=== PATIENT | female | born 1980 | race Caucasian/White ===

== ENCOUNTER 2016-12-25 21:55 | Emergency (ER) | payer OTHER ==
[2016-12-26 00:18] VITALS: BP 129/86
== END 2016-12-26 00:18 | disposition home or self-care (01) ==
LOC: ED 21:55
DX: K04.7 Periapical abscess without sinus (principal)
CPT/HCPCS: J1885

== ENCOUNTER 2017-03-30 13:06 | Emergency (ER) | payer OTHER ==
[~2017-03-30] VITALS: Ht 165.1 cm; Wt 77.9 kg
[2017-03-30 15:13] VITALS: BP 118/82
== END 2017-03-30 15:13 | disposition home or self-care (01) ==
LOC: ED 13:06
DX: K04.7 Periapical abscess without sinus (principal)
CPT/HCPCS: J1885

== ENCOUNTER 2017-04-06 19:47 | Emergency (ER) | payer OTHER ==
[2017-04-06 21:29] LABS: PLATELET COUNT 256 x10^3mcL (130-400)
[2017-04-06 21:35] LABS: RED CELL DISTRIBUTION WIDTH 19.4 % (11.5-14.5)
[2017-04-06 21:38] LABS: CALCIUM 8.5 mg/dL (8.5-10.1); CARBON DIOXIDE 25.6 mmol/L (21-32); CHLORIDE SERUM 112 mmol/L (98-107); CREATININE SERUM 0.8 mg/dL (0.6-1.0); GFR1 > 60 mL/min; GLUCOSE SERUM 96 mg/dL (74-106); POTASSIUM SERUM 3.4 mmol/L (3.5-5.1); SODIUM SERUM 148 mmol/L (136-145)
[2017-04-06 21:43] LABS: ALBUMIN 3.7 g/dL (3.4-5.0); ALKALINE PHOSPHATASE 101 U/L (46-116); ALT/SGPT 44 U/L (14-59); AST/SGOT 35 U/L (15-37); BILIRUBIN TOTAL 0.23 mg/dL (0.20-1.00); TOTAL PROTEIN, SERUM 7.5 g/dL (6.4-8.2)
[2017-04-06 21:59] LABS: MONOCYTE 4 % (0-7); SEGMENTED NEUTROPHILS 73 % (37-75)
[2017-04-06 22:00] LABS: BAND NEUTROPHIL 0 % (0-10); BASOPHIL 0 % (0-2); PLATELET MORPHOLOGY PLATELETS NORMAL; rbc morphology (normal/abnorm) ABNORMAL (NORMAL)
[2017-04-06 22:01] LABS: ovalocyte/elliptocyte 1+
[2017-04-06 22:48] VITALS: BP 125/88
== END 2017-04-06 22:48 | disposition home or self-care (01) ==
LOC: ED 19:47
PROVIDERS: Emergency Medicine Emergency Medical Services
DX: I89.0 Lymphedema, not elsewhere classified (principal); E87.6 Hypokalemia; D50.9 Iron deficiency anemia, unspecified; Z79.2 Long term (current) use of antibiotics

== ENCOUNTER 2017-08-11 23:29 | Inpatient (IN) | payer OTHER ==
[~2017-08-11] VITALS: Ht 165.1 cm; Wt 80.8 kg
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
[2017-08-12] VITALS (12 sets, daily range): BP systolic 83–99; BP diastolic 46–58
--- NOTE | 2017-08-12 00:15 | NUR ---
MSE COMPLETED BY DR ZARAGOZA.
[2017-08-12 00:35] LABS: BASOPHIL % 0.3 % (0-2); PLATELET COUNT 245 x10^3mcL (130-400)
[2017-08-12 00:41] LABS: CALCIUM 7.7 mg/dL (8.5-10.1); CARBON DIOXIDE 22.6 mmol/L (21-32); CHLORIDE SERUM 109 mmol/L (98-107); CREATININE SERUM 0.6 mg/dL (0.6-1.0); GFR1 > 60 mL/min; GLUCOSE SERUM 121 mg/dL (74-106); POTASSIUM SERUM 3.9 mmol/L (3.5-5.1); SODIUM SERUM 138 mmol/L (136-145)
[2017-08-12 00:46] LABS: ALKALINE PHOSPHATASE 67 U/L (46-116); ALT/SGPT 19 U/L (14-59); AST/SGOT 26 U/L (15-37); BILIRUBIN TOTAL 0.2 mg/dL (0.20-1.00); RED CELL DISTRIBUTION WIDTH 21.5 % (11.5-14.5)
[2017-08-12 00:48] LABS: ALBUMIN 2.4 g/dL (3.4-5.0); TOTAL PROTEIN, SERUM 5.6 g/dL (6.4-8.2)
--- NOTE | 2017-08-12 00:50 | NUR ---
CHAPPERONED DR ZARAGOZA WITH PELVIC EXAM. PT HAS MANY LARGE CLOTS. PT STS NO PAIN AT THIS TIME. PT CLEANED AND GIVEN WATER, OKAY BY .
--- NOTE | 2017-08-12 01:35 | NUR ---
EMERGENCY O NEG BLOOD ORDERED BY DR ZARAGOZA; TRANSFUSION INITIATED AT 0130 BY CLINICAL EVALUATOR JANINE AND MYSELF. PT WITH EVEN CHEST RISE AND FALL, STS NO PAIN AT THIS TIME.
--- NOTE | 2017-08-12 01:54 | NUR ---
REPORT GIVEN TO TABITHA/JOHN TO ASSUME CARE OF PT
--- NOTE | 2017-08-12 02:18 | NUR ---
US AT BEDSIDE
[2017-08-12 02:21] LABS: rbc morphology (normal/abnorm) ABNORMAL (NORMAL)
[2017-08-12 02:22] LABS: ovalocyte/elliptocyte 1+; tear drop cell (dacryocyte) 1+
--- NOTE | 2017-08-12 03:01 | NUR ---
PT TRANSFERED TO TELE UNIT
[2017-08-12 03:02] LABS: MAGNESIUM 1.7 mg/dL (1.8-2.4); PHOSPHOROUS 3.7 mg/dL (2.5-4.9)
[2017-08-12 03:06] LABS: CHOLESTEROL/HDL RATIO 1.8
[2017-08-12 03:09] LABS: T3 TOTAL 1.18 ng/mL
[2017-08-12 03:12] LABS: FREE T4 0.92 ng/dL (0.76-1.46); FREE THYROXINE INDEX 2.3 ug/dL (1.4-4.5); T4(THYROXINE) 6.7 ug/dL (4.7-13.3)
--- NOTE | 2017-08-12 03:15 | NUR ---
PT ARRIVED TO FLOOR AT 0255 VIA GURNEY ACCOMPANIED BY AN ED RN IN STABLE CONDITION. BP 99/46 (64), O2 97, T 97.0 HR 16 HR 99. PT DENIES ANY PAIN, SOB, ESCALONA, DIZZINESS AT THIS TIME. PT ARRIVED WITH BED JAVED IN PLACE AND WAS ACTIVELY BLEEDING FROM VAGINA. PT ORIENTED TO ROOM. CALL LIGHT WITHIN REACH. ALL SAFETY MEASURES ENSURED. WILL CONTINUE TO MONITOR.
--- NOTE | 2017-08-12 03:50 | NUR ---
PT CONTINUES TO BE PASSING BLOOD CLOTS FROM VAGINA. LRG BLOOD CLOT NOTED THAT PASSED.
--- NOTE | 2017-08-12 04:59 | NUR ---
IVF NS bolus infusing at this time as ordered. Blood pressure on the low side closely monitored. aware. Pt.resting. In no apparent distress. Seen by RT.
[2017-08-12 06:46] LABS: BASOPHIL % 0.2 % (0-2); PLATELET COUNT 182 x10^3mcL (130-400)
[2017-08-12 07:01] LABS: RED CELL DISTRIBUTION WIDTH 28.3 % (11.5-14.5)
--- NOTE | 2017-08-12 07:11 | NUR ---
PT SEEN BY DR. COOPER FOR D&C. CONSENT SIGNED, CHLORHEXIDINE WIPES DONE. PICKED UP VIA GURNEY ACCOMPANIED BY OR NURSE. OR NURSE AWARE THAT 3 UNITS OF BLOOD ORDERED, UNABLE TO START BLOOD BC WE WERE WAITING FOR BLOOD TO BE AVAILABLE AND OR WAS READY TO TRANSPORT HER FOR PROCEDURE BY THE TIME BLOOD WAS AVAILABLE. COMMUNICATED THAT TO OR NURSE. UNABLE TO GIVE METHERGINE AWAITING FOR PHARMACY TO VERIFY MED. REPORT GIVEN TO OR NURSE.
--- NOTE | 2017-08-12 07:39 | NUR ---
PT OFF UNIT FOR SURGERY.
[2017-08-12 07:51] LABS: RED BLOOD CELLS 3.55 M/mm3 (4.10-5.10)
[2017-08-12 07:55] LABS: CALCIUM 7.4 mg/dL (8.5-10.1); CARBON DIOXIDE 24.1 mmol/L (21-32); CHLORIDE SERUM 112 mmol/L (98-107); CREATININE SERUM 0.6 mg/dL (0.6-1.0); GFR1 > 60 mL/min; GLUCOSE SERUM 109 mg/dL (74-106); POTASSIUM SERUM 4.2 mmol/L (3.5-5.1); SODIUM SERUM 141 mmol/L (136-145)
[2017-08-12 07:59] LABS: IRON 36 ug/dL (50-170)
[2017-08-12 08:01] LABS: TOTAL IRON BINDING CAPACITY 233 ug/dL (250-450)
[2017-08-12 08:27] LABS: rbc morphology (normal/abnorm) ABNORMAL (NORMAL)
[2017-08-12 08:29] LABS: ovalocyte/elliptocyte 1+; tear drop cell (dacryocyte) 1+
--- NOTE | 2017-08-12 08:31 | NUR ---
PT STILL OFF UNIT FOR SURGERY.
--- NOTE | 2017-08-12 09:37 | NUR ---
PT STILL OFF UNIT FOR SURGERY.
--- NOTE | 2017-08-12 10:53 | NUR ---
PT BACK ON UNIT FROM D+C SURGERY, NO RESPIRATORY DISTRESS NOTED, DENIES PAIN, A+OX4, VITAL SIGNS STABLE. REQUESTING TO EAT.
--- NOTE | 2017-08-12 10:55 | NUR ---
PER OR NURSE, 2 UNITS OF BLOOD GIVEN IN OR, 1 UNIT TO BE GIVEN ON THE FLOOR. WILL INFUSE 1 UNIT.
--- NOTE | 2017-08-12 11:09 | NUR ---
BENADRYL AND TYLENOL GIVEN PRE BLOOD TRANSFUSION.
--- NOTE | 2017-08-12 12:33 | NUR ---
BLOOD VERIFIED WITH MANUEL DYER, TRANSFUSION STARTED AT 1232. NURSE TO STAY IN ROOM FOR 15 MINS TO ASSESS FOR ADVERSE REACTION. PT EDUCATED AND TOLD TO ALERT NURSE FOR CHILLS, NAUSEA, PAIN, ITCHINESS, SOB, SWEATING.
--- NOTE | 2017-08-12 12:47 | NUR ---
BLOOD HAS BEEN INFUSING FOR 15 MINS, PT REPORTS NO PAIN, SOB, CHILLS, VITAL SIGNS STABLE, NO RESPIRATORY DISTRESS NOTED. WILL CONT TO TRANFUSE. WILL CONT TO MONITOR PT FOR ADVERSE REACTIONS.
--- NOTE | 2017-08-12 14:26 | NUR ---
PT RESTING IN BED, NO RESPIRATORY DISTRESS NOTED, INFUSION CONTINUING, NO ADVERSE REACTIONS AT THIS TIME.
--- NOTE | 2017-08-12 16:10 | NUR ---
BLOOD TRANSFUSION COMPLETE, PT DENIES PAIN AND SOB, NO RESPIRATORY DISTRESS NOTED, VITAL SIGNS STABLE. NO ADVERSE REACTIONS AT THIS TIME.
--- NOTE | 2017-08-12 17:18 | NUR ---
PT AMBULATED TO BATHROOM AND BACK TO BED WITHOUT ASSISTANCE, PAD PARTIALLY SATURATED WITH BLOOD, PAD CHANGED. PT VOIDED BLOODY URINE. LINENS CHANGED. NO RESPIRATORY DISTRESS NOTED, DENIES PAIN.
[2017-08-12 17:55] LABS: BASOPHIL % 0.4 % (0-2); PLATELET COUNT 162 x10^3mcL (130-400)
[2017-08-12 17:59] LABS: RED CELL DISTRIBUTION WIDTH 26.9 % (11.5-14.5)
[2017-08-12 18:22] LABS: rbc morphology (normal/abnorm) ABNORMAL (NORMAL)
[2017-08-12 18:56] LABS: UA SPECIFIC GRAVITY >=1.030 (1.005-1.035); microscopic required? YES; urine erythrocyte 3+ (NEGATIVE)
--- NOTE | 2017-08-12 20:06 | NUR ---
RECEIVED PT FROM PREVIOUS SHIFT. PT AAOX4. TELE #29. DENIES CP/PRESSURE AT THIS TIME. PULSES PALPABLE BILAT. NO EDEMA NOTED. LUNG SOUNDS CTA BILAT. DENIES SOB ON RA. BOWEL SOUNDS ACTIVE X4. NO WEAKNESS NOTED. AMBULATORY. SKIN CDI. BED IN LOWEST POSITION. CALL LIGHT WITHIN REACH. PT INFORMED TO NOTIFY NURSE WHEN GOING TO RESTROOM TO CHECK PAD SATURATION AND IF ASSISTANCE NEEDED FOR AMBULATION. NO PAIN INDICATED AT THIS TIME. WILL CONTINUE TO MONITOR
[2017-08-12 20:44] LABS: AMPHETAMINE QUAL UR POSITIVE (NEG <=1000)
--- NOTE | 2017-08-12 21:38 | NUR ---
PT RESTING PEACEFULLY IN BED. NO S/S OF RESP DISTRESS. RESPIRATIONS EVEN AND UNLABORED. NO ACUTE DISTRESS NOTED. IV TO RIGHT HAND PATENT AND INFUSING WELL. NS @150 ML/HR. IV TO LEFT HAND APPEARS PATENT AND INTACT. BED IN LOWEST POSITION. CALL LIGHT WITHIN REACH. WILL CONTINUE TO MONITOR
[2017-08-13 05:36] VITALS: BP 98/54
--- NOTE | 2017-08-13 06:41 | NUR ---
PT RESTING PEACEFULLY IN BED. NO ACUTE DISTRESS AT THIS TIME. RESPIRATIONS EVEN AND UNLABORED. IV TO RIGHT HAND PATENT AND INTACT. INFUSING WELL. ADMINISTERED MORNING MEDICATIONS AND PT TOLERATED WELL. STATED SHE USED THE RESTROOM EARLY THIS MORNING AND PAD WAS "BARELY SATURATED", COMPARED IT TO NORMAL MENSTRAL CYCLE. BED IN LOWEST POSITION. CALL LIGHT WITHIN REACH. WILL ENDORSE CARE TO ONCOMING SHIFT
--- NOTE | 2017-08-13 07:10 | NUR ---
ASLEEP AT BEGINNING OF SHIFT, RESP EVEN AND UNLABORED.
[2017-08-13 07:59] LABS: CALCIUM 7.2 mg/dL (8.5-10.1); CARBON DIOXIDE 23.6 mmol/L (21-32); CHLORIDE SERUM 111 mmol/L (98-107); CREATININE SERUM 0.6 mg/dL (0.6-1.0); GFR1 > 60 mL/min; GLUCOSE SERUM 87 mg/dL (74-106); MAGNESIUM 1.7 mg/dL (1.8-2.4); PHOSPHOROUS 3.2 mg/dL (2.5-4.9); SODIUM SERUM 143 mmol/L (136-145)
--- NOTE | 2017-08-13 08:30 | NUR ---
PT AWAKE, ALERT, ORIENTED, DENIES PAIN AT THIS TIME, DENIES SOB. LUNG SOUNDS CLEAR TO AUSCULTATION, PT IS ON ROOM AIR. BOWEL SOUNDS ACTIVE X 4, STATES LBM 08/12/17. HRRR, PULSES STRONG THROUGHOUT EXTREMITIES, CAP REFILL <3 SECS, DENIES ANY NUMBNESS/TINGLING IN EXTREMITIES. NO PALLOR NOTED IN EXTREMITIES. SKIN CDI THROUGHOUT, IV SITE CDI RUNNING 150ML/HR NS. BED IN LOWEST POSITION, CALL LIGHT WITHIN REACH, 2 RAILS UP.
--- NOTE | 2017-08-13 08:32 | NUR ---
PAD IS CURRENTLY UNSATURATED.
[2017-08-13 08:34] LABS: BASOPHIL % 0.3 % (0-2); PLATELET COUNT 144 x10^3mcL (130-400)
[2017-08-13 09:08] LABS: RED CELL DISTRIBUTION WIDTH 27.3 % (11.5-14.5)
[2017-08-13 10:00] VITALS: BP 89/43
--- NOTE | 2017-08-13 10:40 | NUR ---
PT SLEEPING, RESPIRATIONS NOTED. IN NO S/S OF DISTRESS OR PAIN AT THIS TIME. IVF RATE CHANGED TO 10ML/HR ORDERED. BED IN LOWEST POSITION, CALL LIGHT WITHIN REACH, 2 RAILS UP.
--- NOTE | 2017-08-13 11:55 | NUR ---
PT SLEEPING, RESPIRATIONS NOTED. IN NO APPARENT DISTRESS. BED IN LOWEST POSITION, CALL LIGHT WITHIN REACH, 2 RAILS UP.
--- NOTE | 2017-08-13 12:42 | NUR ---
PT SITTING IN BED EATING FOOD. DENIES PAIN, IN NO APPARENT DISTRESS. BED IN LOWEST POSITION, CALL LIGHT WITHIN REACH, 2 RAILS UP.
[2017-08-13 14:00] VITALS: BP 99/54
--- NOTE | 2017-08-13 15:28 | NUR ---
PT CURRENTLY SLEEPING. IN NO APPARENT DISTRESS. RESPIRATIONS NOTED, UNLABORED. BED IN LOWEST POSITION, CALL LIGHT WITHIN REACH, 2 RAILS UP.
--- NOTE | 2017-08-13 16:21 | NUR ---
SPOKE TO DR GIANG ABOUT HGB OF 7.0 AND HR 110, PT IN NO APPARENT DISTRESS, NO TINGLING/NUMBNESS/PALLOR, DENIES PAIN/DIZZINESS/SOB.
[2017-08-13] MEDS ORDERED: FERROUS SULFAT325 M2 PO (16:26)
[2017-08-13] MEDS ORDERED: LEADER C1 TAB PO (16:29)
[2017-08-13] MEDS ORDERED: TYL325 PO (16:36)
--- NOTE | 2017-08-13 16:36 | NUR ---
DR GIANG ON FLOOR AND REPORTS SPOKE WITH DR Jania COOPER. PATIENTS H&H WITHIN PATIENTS BASELINE, OKAY TO [facility].
[2017-08-13 16:39] VITALS: BP 99/54
--- NOTE | 2017-08-13 17:37 | NUR ---
DISCHARGE INFORMATION REVIEWED WITH PATIENT, PATIENT VERBALIZES UNDERSTANDING. IV CATHETERS DC'D, TIPS INTACT. PT STATED WILL PICK HER UP.
--- NOTE | 2017-08-13 17:50 | NUR ---
[facility]
== END 2017-08-13 17:50 | disposition home or self-care (01) | DRG 544 ==
LOC: ED 23:29 → DU 08-12 01:15
PROVIDERS: Emergency Medicine; Obstetrics & Gynecology; ADMIT Family Medicine Sports Medicine
PROC: 30233N1 Transfusion of Nonautologous Red Blood Cells into Peripheral Vein, Percutaneous Approach (ICD-10-PCS; 2017-08-12)
PROC: 10D17ZZ Extraction of Products of Conception, Retained, Via Natural or Artificial Opening (ICD-10-PCS; principal; 2017-08-12 07:00)
DX: O02.1 Missed abortion (principal); N17.0 Acute kidney failure with tubular necrosis; E43 Unspecified severe protein-calorie malnutrition; E87.8 Other disorders of electrolyte and fluid balance, not elsewhere classified; D62 Acute posthemorrhagic anemia; E83.42 Hypomagnesemia; E11.9 Type 2 diabetes mellitus without complications; O03.1 Delayed or excessive hemorrhage following incomplete spontaneous abortion; Z68.29 Body mass index [BMI] 29.0-29.9, adult
CPT/HCPCS: 82962; 83880; 84439; 94150; C1758; J0690; J2060; J2210; J2250; J2590; J3475; J3490; J7030; J7050; J7120; J7620; P9016; Q0092; Q0163

== ENCOUNTER 2018-11-19 18:39 | Inpatient (IN) | payer OTHER ==
[~2018-11-19] VITALS: Ht 165.1 cm; Wt 80.7 kg
[~2018-11-19 18:39] MED LIST: FERROUS SULFAT325 M2 PO; LEADER C1 TAB PO; TYL325 PO
[2018-11-19 18:48] VITALS: Ht 165.1 cm; Wt 80.7 kg
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
--- NOTE | 2018-11-19 19:04 | NUR ---
PT AMBULATED WITH STEADY GAIT TO RESTROOM TO PROVIDE URINE SPECIMEN.
--- NOTE | 2018-11-19 19:14 | NUR ---
REPORT GIVEN TO RICHARD JACKSON
[2018-11-19 19:38] LABS: PLATELET COUNT 279 x10^3mcL (130-400)
[2018-11-19 19:45] LABS: RED CELL DISTRIBUTION WIDTH 19.7 % (11.5-14.5)
[2018-11-19 19:46] LABS: ALBUMIN 3.9 g/dL (3.4-5.0); ALKALINE PHOSPHATASE 117 U/L (46-116); ALT/SGPT 81 U/L (14-59); AST/SGOT 51 U/L (15-37); BILIRUBIN TOTAL 0.2 mg/dL (0.20-1.00); CALCIUM 8.5 mg/dL (8.5-10.1); CARBON DIOXIDE 27.2 mmol/L (21-32); CHLORIDE SERUM 104 mmol/L (98-107); CREATININE SERUM 0.6 mg/dL (0.6-1.0); GFR1 > 60 mL/min; GLUCOSE SERUM 90 mg/dL (74-106); POTASSIUM SERUM 4.2 mmol/L (3.5-5.1); SODIUM SERUM 141 mmol/L (136-145); TOTAL PROTEIN, SERUM 7.4 g/dL (6.4-8.2)
--- NOTE | 2018-11-19 20:11 | NUR ---
PT RESTING IN A POSITION OF COMFORT WITH NO DISTRESS NOTED AT THIS TIME. RESP EVEN AND UNLABORED, PT RATES PAIN AT 4/10 AT THIS TIME.
[2018-11-19 20:18] LABS: BAND NEUTROPHIL 0 % (0-10); BASOPHIL 0 % (0-2); MONOCYTE 9 % (0-7); SEGMENTED NEUTROPHILS 66 % (37-75)
[2018-11-19 20:23] LABS: ovalocyte/elliptocyte 1+; rbc morphology (normal/abnorm) ABNORMAL (NORMAL); schistocyte (helmet cell) 1+
[2018-11-19 20:24] LABS: PLATELET MORPHOLOGY LARGE PLATELET SEEN
[2018-11-19 20:25] LABS: PATH REVIEW for HEMA YES
--- NOTE | 2018-11-19 21:00 | NUR ---
PT RESTING IN A POSITION OF COMFORT. RESP EVEN AND UNLABORED, NO ACUTE DISTRESS NOTED. PT AOX4.
--- NOTE | 2018-11-19 22:00 | NUR ---
BLOOD TRANSFUSION INITIATED AT THIS TIME. PT RESTING IN A POSITION OF COMFORT, RESP EVEN AND UNLABORED, NO ACUTE DISTRESS NOTED AT THIS TIME. RN AT BEDSIDE.
--- NOTE | 2018-11-19 22:15 | NUR ---
BLOOD INFUSION RATE INCREASED TO 333.3ML/HR TO INFUSE REMAINING 250ML OF BLOOD. PT DENIES ANY S/S OF ALLERGIC REACTION. PT DENIES SOB, DIFFICULTY BREATHING OR CHEST PAIN. PT AOX4, RESP EVEN AND UNLABORED, NO ACUTE DISTRESS NOTED.
--- NOTE | 2018-11-19 23:00 | NUR ---
1ST UNIT PRBC INFUSED. PT AOX4, RESP EVEN AND UNLABORED, NO ACUTE DISTRESS NOTED. PT DENIES ANY S/S OF REACTION, SOB, OR CHEST PAIN.
--- NOTE | 2018-11-19 23:30 | NUR ---
2ND UNIT OF PRBC INITIATED AT THIS TIME. PT AOX4, RESP EVEN AND UNLABORED, NO ACUTE DISTRESS NOTED. RATE SET TO 200ML/HR. RN AT BEDSIDE.
--- NOTE | 2018-11-19 23:45 | NUR ---
RATE INCREASED TO 333.3ML/HR. PT DENIES S/S OF ALLERGIC REACTION, SOB, CHEST PAIN. PT AOX4, RESP EVEN AND UNLABORED, NO ACUTE DISTRESS NOTED. RATE WILL CONTINUE FOR ADDITIONAL 45MIN.
--- NOTE | 2018-11-20 00:45 | NUR ---
2ND UNIT OF PRBC INFUSION COMPLETE AT THIS TIME. PT RESTING WITH EYES CLOSED, CHEST RISE AND FALL NOTED, RESP EVEN AND UNLABORED, NO ACUTE DISTRESS NOTED AT THIS TIME. PT DENIES S/S OF ALLERGIC REACTION, SOB, OR CHEST PAIN.
--- NOTE | 2018-11-20 01:45 | NUR ---
PT SLEEPING COMFOTABLY IN BED. EASILY AROUSED BY VERBAL STIMULI. BREATHING EASY AND UNLABORED. NO OBVIOUS SIGNS OF DISTRESS AT THIS TIME. VSS.
--- NOTE | 2018-11-20 03:24 | NUR ---
PT RESTING IN A POSITION OF COMFORT WITH EYES CLOSED. RESP EVEN AND UNLABORED, NO ACUTE DISTRESS NOTED AT THIS TIME. CHEST RISE AND FALL NOTED, PT ON REPLANTER.
--- NOTE | 2018-11-20 04:34 | NUR ---
PT RESTING IN A POSITION OF COMFORT WITH EYES CLOSED. CHEST RISE AND FALL NOTED. RESP EVEN AND UNLABORED, PT WAKES EASILY TO VERBAL AND TACTILE STIMULI. NO DISTRESS NOTED.
--- NOTE | 2018-11-20 04:59 | NUR ---
SPOKE WITH BUTTER MELTER ASHA, SHE WILL BE DRAWING THE MORNING LABS AT THIS TIME. PER DR HOBSON, "DRAW MORNING LABS CBC, CMP, MAG, AND PHOS" SPECIFIC TIME WAS NOT GIVEN.
[2018-11-20 05:54] LABS: ALKALINE PHOSPHATASE 104 U/L (46-116); ALT/SGPT 77 U/L (14-59); AST/SGOT 58 U/L (15-37); BILIRUBIN TOTAL 0.36 mg/dL (0.20-1.00); CARBON DIOXIDE 26.4 mmol/L (21-32); CHLORIDE SERUM 109 mmol/L (98-107); CREATININE SERUM 0.5 mg/dL (0.6-1.0); GFR1 > 60 mL/min; GLUCOSE SERUM 95 mg/dL (74-106); MAGNESIUM 2.1 mg/dL (1.8-2.4); PHOSPHOROUS 3.4 mg/dL (2.5-4.9); POTASSIUM SERUM 4.4 mmol/L (3.5-5.1); SODIUM SERUM 143 mmol/L (136-145); TOTAL PROTEIN, SERUM 6.4 g/dL (6.4-8.2)
[2018-11-20 05:55] LABS: ALBUMIN 3.2 g/dL (3.4-5.0)
--- NOTE | 2018-11-20 06:22 | NUR ---
PT RESTING IN A POSITION OF COMFORT WITH EYES CLOSED, RESP EVEN AND UNLABORED, NO ACUTE DISTRESS NOTED.
[2018-11-20 07:04] LABS: BASOPHIL % 0.1 % (0-2); PLATELET COUNT 261 x10^3mcL (130-400)
--- NOTE | 2018-11-20 07:10 | NUR ---
RECEIVED REPORT FORM RICHARD TO RESUME CARE OF PATIENT
--- NOTE | 2018-11-20 07:26 | NUR ---
PT REPORT CALLED TO LELA JACKSON TO ASSUME PT CARE.
--- NOTE | 2018-11-20 08:00 | NUR ---
ADMITTED FR. ER VIA GUERNEY ACCOMPANIED BY ER NURSE.CHIEF C/O VAG BLEEDING SINCE JUN.AAO X4.C/OMILD LOWER ABD'L CRAP AT 4/10 PAIN SCALE.LUNGS CLEAR.ON SINUS TACHY DG=[id number] ON MONITOR # 16.ADMISSION ASSESSMENT AND HX COMPLETED.CALL LIGHT WITHIN REACH.INSTRUCTED TO CALL FOR ANY PAIN/DISCOMFORT.WILL CONTINUE TO MONITOR PT.
[2018-11-20 08:40] VITALS: BP 108/69
[2018-11-20 09:06] VITALS: BP 108/69
[2018-11-20 11:36] LABS: rbc morphology (normal/abnorm) ABNORMAL (NORMAL)
[2018-11-20 11:37] LABS: ovalocyte/elliptocyte 1+; schistocyte (helmet cell) 1+
--- NOTE | 2018-11-20 11:57 | NUR ---
PRE-MEDICATED PT WITH TYLENOL AND BENADRYL ORDERED.BLOOD TRANSFUSION STARTED.CHECKED BLOOD WITH MANUEL HARMON.DONOR UNIT #[id number].V/S=T=99.3,HR=81,IW=059/68,RR=20,SPO2=98%.WILL CONTINUE TO MONITOR PT.
[2018-11-20 12:13] VITALS: BP 104/60
[2018-11-20 15:00] VITALS: BP 107/58
--- NOTE | 2018-11-20 15:00 | NUR ---
BLOOD TRANSFUSION DONE.PT TOLERATED IT WELL.NO ADVERSE REACTION NOTED.V/S=T=98.9,MI=872/58(73),HR=98,RR=18,ZAA9=014 % ON RA.
[2018-11-20 15:25] LABS: PLATELET COUNT 286 x10^3mcL (130-400)
[2018-11-20 15:41] LABS: BASOPHIL % 0 % (0-2); RED CELL DISTRIBUTION WIDTH 27.5 % (11.5-14.5)
[2018-11-20 15:55] LABS: rbc morphology (normal/abnorm) ABNORMAL (NORMAL)
[2018-11-20 17:35] VITALS: BP 100/58
--- NOTE | 2018-11-20 17:50 | NUR ---
REPORT GIVEN TO [place],OR NURSE.KYA WIPES ALSO DONE.
[2018-11-20 17:56] LABS: UA SPECIFIC GRAVITY 1.025 (1.005-1.035); microscopic required? YES; urine erythrocyte 3+ (NEGATIVE)
--- NOTE | 2018-11-20 18:38 | NUR ---
NO SIGNIFICANT CHANGE NOTED WILL ENDORSE TO NEXT SHIFT.
--- NOTE | 2018-11-20 19:58 | NUR ---
PT A/A/O X4, FAMILY AT BEDSIDE. PT DENIES DIZZINESS AND HEADACHE. BREATH SOUNDS CLEAR. BREATHING EVEN AND UNLABORED ON ROOM AIR. DENIES CHEST PAIN AND PRESSURE. BOWEL SOUNDS ACTIVE. NO C/O N/V AND C/O 4/10 ABD PAIN. DENIES NEED FOR PAIN MEDICATION. PT C/O VAGINAL BLEED. PT JUST WENT DOWN TO OR WITH THE OR NURSES FOR PROCEDURE. IV HEPLOCK NOTED ON LAC AND RAC. WILL CONTINUE TO MONITOR.
[2018-11-20 20:35] VITALS: BP 110/71
--- NOTE | 2018-11-20 20:40 | NUR ---
PT CAME BACK FROM OR WITH THE PROCEDURE NOT DONE. PER OR NURSE THERE IS A MISCOMMUNICATION BETWEEN DOCTORS. PROCEDURE POSSIBLY TO BE DONE 11/21/18 AFTER 5PM. PT DENIES PAIN. MADE PT COMFORTABLE. PLACED CALL LIGHT WITH IN REACH. WILL CONTINUE TO MONITOR.
--- NOTE | 2018-11-20 22:13 | NUR ---
PATIENTS UA POSITIVE FOR LEUKOCYTES AND NITRATES. DR. FRANCO NOTIFIED. DR MCGOWAN ALSO NOTIFIED ABOUT PROCEDURE NOT BEING DONE. DR. FRANCO AT PATIENTS BEDSIDE. SPEAKING WITH THE PT. WILL CONTINUE TO MONITOR.
--- NOTE | 2018-11-21 00:57 | NUR ---
PT RESTING WITH EYES CLOSED. NO DISTRESS AND DISCOMFORT NOTED. WILL CONTINUE TO MONITOR.
[2018-11-21 05:18] VITALS: BP 108/69
--- NOTE | 2018-11-21 06:55 | NUR ---
PT QUIET AND RESTING. DENIES PAIN AND DISCOMFORT THUS FAR. PT STATED SHE USED TOTAL OF 5 PADS WITH LARGE AMOUNT OF SANGUINEOUS FLUID. IV INTACT. MADE PT COMFORTABLE. WILL ENDORSE TO THE AM NURSE ACCORDINGLY.
--- NOTE | 2018-11-21 07:10 | NUR ---
AAO X4.DENIES ANY PAIN/DISCOMFORT.LUNGS CLEAR.ON SR ON THE MONITOR.HR=88. PER PT HAD 5 PADS SOAKED SEROUS SINCE LAST NIGHT.INSTRUCTED PT TO BE NPO AFTER BREAKFAST ORDERED.PT VERBALIZES UNDERSTANDING.FOR HYSTEROSCOPY AND D&C AFTER 5 PM TODAY PER NOC RN'S REPORT.CALL LIGHT WITHIN REACH.INSTRUCTED TO CALL FOR ANY PAIN/DISCOMFORT.WILL CONTINUE TO MONITOR PT.
[2018-11-21 07:46] LABS: PLATELET COUNT 232 x10^3mcL (130-400)
[2018-11-21 07:54] LABS: RED CELL DISTRIBUTION WIDTH 27.2 % (11.5-14.5)
[2018-11-21 08:09] LABS: CALCIUM 8.1 mg/dL (8.5-10.1); CARBON DIOXIDE 26.6 mmol/L (21-32); CHLORIDE SERUM 108 mmol/L (98-107); CREATININE SERUM 0.5 mg/dL (0.6-1.0); GFR1 > 60 mL/min; GLUCOSE SERUM 93 mg/dL (74-106); MAGNESIUM 2.1 mg/dL (1.8-2.4); POTASSIUM SERUM 4.3 mmol/L (3.5-5.1); SODIUM SERUM 142 mmol/L (136-145)
--- NOTE | 2018-11-21 08:16 | NUR ---
GAVE PT MORPHINE 2 MG IVP FOR C/O LOWER PELVIC PAIN AT 8/10 PAIN SCALE.WILL CONTINUE TO MONITOR PT.
--- NOTE | 2018-11-21 08:46 | NUR ---
WENT TO RECHECK PAIN LEVEL WENT DOWN AT 2/10 PAIN SCALE.PT COMFORTABLE AT THE MOMENT
[2018-11-21 10:11] VITALS: BP 104/56
[2018-11-21 11:40] LABS: BAND NEUTROPHIL 0 % (0-10); BASOPHIL 0 % (0-2); MONOCYTE 5 % (0-7); SEGMENTED NEUTROPHILS 88 % (37-75)
[2018-11-21 11:42] LABS: rbc morphology (normal/abnorm) ABNORMAL (NORMAL)
--- NOTE | 2018-11-21 13:00 | NUR ---
GAVE KYA BATH FOR PT.
[2018-11-21 14:16] VITALS: BP 110/64
--- NOTE | 2018-11-21 16:30 | NUR ---
PT WENT DOWN FOR SURGERY D&C VIA MATT ACCOMPANIED BY ODeisi MIJARES
[2018-11-21 18:30] VITALS: BP 97/57
--- NOTE | 2018-11-21 18:38 | NUR ---
PT BACK FR. RECOVERY ROOM S/O HYSTEROSCOPY AND D & C.AAO X4.DENIES ANY PAIN AT THE MOMENT. V/S=T=98.7,97/57(70),RR=12,HR=87.MILD VAG BLEEDING NOTED.CALL LIGHT WITHIN REACH.INSTRUCTED TO CALL FOR ANY PAIN/DISCOMFORT.WILL CONTINUE TO MONITOR PT.
--- NOTE | 2018-11-21 20:00 | NUR ---
PT A/A/O X4. DENIES DIZZINESS AND HEADACHE. BREATH SOUNDS CLEAR. BREATHING EVEN AND UNLABORED ON ROOM AIR. DENIES CHEST PAIN AND PRESSURE. BOWEL SOUNDS ACTIVE. NO C/O N/V AND ABD PAIN. PT BURPED AND PASSED GAS THUS FAR. PT HAS NOT VOIDED SINCE S/P D AND C EARLIER. PT STILL HAS VAGINAL BLEED. AND HAD CHANGED 1 SANITARY PAD SINCE COMING BACK FOR THE PROCEDURE. IV HEPLOCK INTACT ON THE LAC AND RAC. MADE PT COMFORTABLE. PLACED CALL LIGHT WITH IN REACH. WILL CONTINUE TO MONITOR.
[2018-11-21 21:49] VITALS: BP 105/62
--- NOTE | 2018-11-22 00:54 | NUR ---
PT RESTING WITH EYES CLOSED. NO DISTRESS AND DISCOMOFRT NOTED. WILL CONTINUE TO MONITOR.
[2018-11-22 05:29] VITALS: BP 100/58
--- NOTE | 2018-11-22 06:32 | NUR ---
PT RESTING WITH EYES CLOSED. EASILY AROUSABLE WITH VERBAL STIMULI. DENIES PAIN THUS FAR. PER PT, PT USED 1 PAD SINCE CHANGING IN THE BEGINING OF THE SHIFT. MADE PT COMFORTABLE. WILL ENDORSE TO THE AM NURSE ACCORDINGLY.
[2018-11-22 07:17] LABS: PLATELET COUNT 315 x10^3mcL (130-400)
[2018-11-22 07:20] LABS: CALCIUM 8.3 mg/dL (8.5-10.1); CARBON DIOXIDE 25.8 mmol/L (21-32); CHLORIDE SERUM 105 mmol/L (98-107); CREATININE SERUM 0.7 mg/dL (0.6-1.0); GFR1 > 60 mL/min; GLUCOSE SERUM 115 mg/dL (74-106); MAGNESIUM 2.2 mg/dL (1.8-2.4); PHOSPHOROUS 3.7 mg/dL (2.5-4.9); POTASSIUM SERUM 4.1 mmol/L (3.5-5.1); SODIUM SERUM 139 mmol/L (136-145)
--- NOTE | 2018-11-22 07:30 | NUR ---
RECEIVED PATIENT IN BED, AWAKE, ALERT AND ORIENTED. DENIES ANY PAIN OR DISCOMFORT. HL RT A/C PATENT, FLUSHED WELL, NO REDNESS OR SWELLING NOTED. RESP EVEN AND UNLABORED, LUNGS CLEAR ON ROOM AIR. PATIENT AMBULATING TO THE BATHROOM. PATIENT TOLERATED DIET WELL. PER PATIENT HER VAG BLEEDING IS STILL NOTED, BUT LESS, PATIENT REMINDED THAT WE ARE COUNTING PADS. TELE 16 NSR. WILL CONTINUE TO MONITOR.
[2018-11-22 10:05] VITALS: BP 103/55
[2018-11-22 11:15] LABS: BAND NEUTROPHIL 5 % (0-10); BASOPHIL 0 % (0-2); MONOCYTE 9 % (0-7); SEGMENTED NEUTROPHILS 65 % (37-75)
[2018-11-22 11:17] LABS: rbc morphology (normal/abnorm) ABNORMAL (NORMAL)
[2018-11-22 11:19] LABS: ovalocyte/elliptocyte 1+; tear drop cell (dacryocyte) 1+
[2018-11-22] MEDS ORDERED: FER300 PO (11:42)
[2018-11-22 12:51] VITALS: BP 103/55
--- NOTE | 2018-11-22 13:53 | NUR ---
PATIENT READY FOR D/C HOME. HL AND TELE DC'D. PRESCRIPTION AND DISCHARGE INSTRUCTIONS GIVEN. PERSONAL BELONGINGS LIST SIGNED. EDUCATION PROVIDED. CONDITIION APPEARS STABLE. PER PATIENT SHE HAD ONLY USED 2 JOHNSON PADS.
[2018-11-22 14:07] VITALS: BP 109/66
== END 2018-11-22 14:14 | disposition home or self-care (01) | DRG 544 ==
LOC: ED 18:39 → DU 21:03
PROVIDERS: Emergency Medicine; General Practice; Internal Medicine; ADMIT Internal Medicine
PROC: 30233N1 Transfusion of Nonautologous Red Blood Cells into Peripheral Vein, Percutaneous Approach (ICD-10-PCS; principal; 2018-11-19)
PROC: 0UDB8ZZ Extraction of Endometrium, Via Natural or Artificial Opening Endoscopic (ICD-10-PCS; 2018-11-21)
DX: O03.4 Incomplete spontaneous abortion without complication (principal); K72.00 Acute and subacute hepatic failure without coma; N17.0 Acute kidney failure with tubular necrosis; N92.1 Excessive and frequent menstruation with irregular cycle; N93.8 Other specified abnormal uterine and vaginal bleeding; N39.0 Urinary tract infection, site not specified; R74.0 Nonspecific elevation of levels of transaminase and lactic acid dehydrogenase [LDH]; D50.0 Iron deficiency anemia secondary to blood loss (chronic)
CPT/HCPCS: 85060; C1758; J0690; J0696; J2270; J3010; J7030; J7040; J7050; P9016; Q0092; Q0163

== ENCOUNTER 2018-11-26 20:24 | Emergency (ER) | payer OTHER ==
[~2018-11-26] VITALS: Ht 165.1 cm; Wt 80.7 kg
[~2018-11-26 20:24] MED LIST changes: +FER300 PO
[2018-11-26 21:09] VITALS: Ht 165.1 cm; Wt 80.7 kg
[2018-11-26 21:53] LABS: BASOPHIL % 0.1 % (0-2); PLATELET COUNT 276 x10^3mcL (130-400)
[2018-11-26 22:03] LABS: RED CELL DISTRIBUTION WIDTH 28.5 % (11.5-14.5)
[2018-11-26 22:34] LABS: rbc morphology (normal/abnorm) ABNORMAL (NORMAL)
[2018-11-26 22:37] LABS: ovalocyte/elliptocyte 1+
[2018-11-27 03:38] VITALS: BP 116/75
== END 2018-11-27 03:55 | disposition home or self-care (01) ==
LOC: ED 20:24
PROVIDERS: Emergency Medicine
DX: N93.9 Abnormal uterine and vaginal bleeding, unspecified (principal); D50.0 Iron deficiency anemia secondary to blood loss (chronic)
CPT/HCPCS: J1885; J7030; P9016

== ENCOUNTER 2018-12-18 13:48 | Emergency (ER) | payer OTHER ==
[~2018-12-18] VITALS: Ht 165.1 cm; Wt 78.6 kg
[2018-12-18 13:57] VITALS: Ht 165.1 cm; Wt 78.6 kg
[2018-12-18 14:49] LABS: BASOPHIL % 0.3 % (0-2); PLATELET COUNT 302 x10^3mcL (130-400)
[2018-12-18 14:50] LABS: RED CELL DISTRIBUTION WIDTH 26.3 % (11.5-14.5)
[2018-12-18 15:02] LABS: rbc morphology (normal/abnorm) ABNORMAL (NORMAL)
[2018-12-18 15:57] VITALS: BP 111/69
== END 2018-12-18 15:55 | disposition home or self-care (01) ==
LOC: ED 13:48
PROVIDERS: Emergency Medicine
DX: N93.8 Other specified abnormal uterine and vaginal bleeding (principal); Z86.2 Personal history of diseases of the blood and blood-forming organs and certain disorders involving the immune mechanism
CPT/HCPCS: 36415

== ENCOUNTER 2019-03-22 02:13 | Emergency (ER) | payer OTHER ==
[~2019-03-22] VITALS: Ht 165.1 cm; Wt 80.7 kg
[2019-03-22 02:27] VITALS: Ht 165.1 cm; Wt 80.7 kg
[2019-03-22 05:23] VITALS: BP 111/69
== END 2019-03-22 05:23 | disposition home or self-care (01) ==
LOC: ED 02:13
DX: S93.402A Sprain of unspecified ligament of left ankle, initial encounter (principal); X58.XXXA Exposure to other specified factors, initial encounter; Y93.89 Activity, other specified; Y92.89 Other specified places as the place of occurrence of the external cause; Y99.8 Other external cause status
CPT/HCPCS: J1885; Q0092